=== PATIENT | female | born 1960 | race Caucasian/White ===

== ENCOUNTER 2024-07-09 19:38 | Emergency (ER) | payer OTHER, MEDICARE, SELFPAY ==
--- NOTE | ~2024-07-09 | XR_ITS ---
CLINICAL HISTORY: pain 3 view left shoulder Comparison: None Findings: No displaced fractures or dislocations. Mild degenerative changes of the left glenohumeral joint and left AC joint. Low bone mineralization suggested. Necklace opacities noted. Mild atelectasis in the fiqpv-fe-qliu. IMPRESSION: 1. No acute fracture or dislocation. 2. Mild osteoarthritis. This document has been electronically signed by: Tacho Klein MD on 07/09/2024 20:42:54
--- NOTE | ~2024-07-09 | US_ITS ---
EXAMINATION: US TRIPLEX UPPER EXTREMITY, LEFT CLINICAL INFORMATION: LEFT arm edema and swelling, pain COMPARISON: None available. TECHNIQUE: Color-flow triplex imaging with spectral analysis and compression Doppler was performed on the left upper extremity. FINDINGS: The left internal jugular, subclavian, and axillary veins are patent and free of thrombus. The imaged segment of the left brachiocephalic vein is patent. Spectral doppler waveforms are normal. The brachial, basilic, cephalic, radial, and ulnar veins are patent and compressible. US/US venous duplex UE LT IMPRESSION: No evidence of deep venous thrombosis involving the left upper extremity. Electronically signed by: Anel Lewis MD 07/12/2024 05:24 AM EST
[2024-07-09 19:52] VITALS: PULSE 64; RESP 16; TEMP 36.2; O2SAT 98; BMI 20.4
--- NOTE | 2024-07-09 19:56 | ED.EXTPRO ---
HPI - Extremity Problem General Chief complaint: Extremity Injury, Upper Stated complaint: ? blood clot in arm sent by [facility] care Related Data Allergies Allergy/AdvReac Type Severity Reaction Status Date / Time prochlorperazine AdvReac Unknown SKIN Unverified 07/09/24 19:59 [From COMPAZINE] [facility] Social History Social History Advance Directives: No Advance Directives Information Provided: No Do you have a plan to hurt others: No Plan Physical Exam Vital Signs: Vital Signs: Last Vital Signs Temp 97.2 F 07/09/24 19:52 Pulse 64 07/09/24 19:52 Resp 16 07/09/24 19:52 Pulse Ox 98 07/09/24 19:52 O2 Del Method Room Air 07/09/24 19:52 BMI result Body Mass Index 20.4 Course Course Course Narrative: This is a rapid medical exam performed by Dayana Mccain PA-C. Patient is a 63-year-old female who was sent here from urgent Care due to concern for DVT of the left upper extremity. The patient has been having ongoing left upper extremity pain for months; she states she sustained a fracture a few years ago, and has had worsening pain since. Patient has limited range of motion can not perform lateral arm raise she can flex and extend from the elbow. Her pulses are intact, she is perfusing, there was no objective swelling. We will be ordering x-rays and an ultrasound of the left upper extremity. The patient is stable and can return to the waiting room pending her full medical assessment. I am ordering screening labs in the event that she actually requires anticoagulation. Medical Decision Making Lab Data 07/09/24 20:05 07/09/24 20:05 Labs: Lab Results 07/09/24 Range/Units 20:05 WBC 4.3 L (4.8-10.8) X10*3/uL RBC 4.33 (4.20-5.50) X10*6/uL Hgb 13.9 (12.0-16.0) g/dl Hct 39.7 (37.0-47.0) % MCV 91.7 (80.0-98.0) fL MCH 32.1 (27.0-33.0) pg MCHC 35.0 (31.0-35.0) g/dl RDW 12.6 (11.0-16.0) % Plt Count 190 (160-400) X10*3/uL MPV 10.3 (9.4-12.3) fL Immature Gran % (Auto) 0.2 (0.0-0.4) % Neut % (Auto) 42.5 L (45-73) % Lymph % (Auto) 39.4 (20-40) % [place] % (Auto) 12.0 H (2-11) % Eos % (Auto) 5.2 H (0-4) % Baso % (Auto) 0.7 (0-2) % Lymph # (Auto) 1.7 (1.2-4.9) X10*3/uL [place] # (Auto) 0.5 (0.1-1.2) X10*3/uL Eos # (Auto) 0.2 (0.0-0.4) X10*3/uL Baso # (Auto) 0.0 (0.0-0.2) X10*3/uL Abs Immat Gran (auto) 0.01 (0.00-0.03) X10*3/uL Absolute Neuts (auto) 1.8 L (2.0-8.3) x10*3/uL Absolute Nucleated RBC 0.000 (0.0-0.012) X10*3/uL Nucleated RBC % (auto) 0.0 (0.0-0.2) /100WBC PT 13.3 H (10.9-12.4) SEC INR 1.1 (0.9-1.1) Sodium 140 (135-145) mmol/L Potassium 3.2 L (3.3-5.1) mmol/L Chloride 103 (96-108) mmol/L Carbon Dioxide 28 (22-29) mmol/L Anion Gap 12 (12-20) BUN 16 (9-16) mg/dL Creatinine 0.61 (0.5-1.4) mg/dL Estim Creat Clear Calc 75.7 Estimated GFR > 60 Random Glucose 87 (60-115) mg/dL Calcium 9.1 (8.4-10.2) mg/dL Magnesium 2.3 (1.6-2.6) mg/dL Total Bilirubin 0.5 (0.0-1.0) mg/dL AST 22 (5-31) U/L ALT 21 (0-31) U/L Alkaline Phosphatase 91 (39-117) U/L Total Protein 7.0 (6.5-8.0) g/dL Albumin 4.5 (3.5-5.0) g/dL Discharge Plan Discharge Clinical Impression: Arm pain, left Patient Disposition: Left W/O Completing Treatment Discharge Date/Time: 07/09/24 22:36
[2024-07-09 20:09] LABS: MANUAL DIFF FLAG NO
[2024-07-09 20:17] LABS: Basophils Percent Auto 0.7 % (0-2); Eosinophils Absolute Auto 0.2 X10*3/uL (0.0-0.4); Eosinophils Percent Auto 5.2 % (0-4); Hematocrit 39.7 % (37.0-47.0); Hemoglobin 13.9 g/dl (12.0-16.0); Imm Gran Abs Auto 0.01 X10*3/uL (0.00-0.03); Imm Gran Pct Auto 0.2 % (0.0-0.4); Lymphocytes Absolute Auto 1.7 X10*3/uL (1.2-4.9); Lymphocytes Percent Auto 39.4 % (20-40); Mean Corpuscular Hemoglobin 32.1 pg (27.0-33.0); Mean Corpuscular Volume 91.7 fL (80.0-98.0); Mean Platelet Volume 10.3 fL (9.4-12.3); Monocytes Absolute Auto 0.5 X10*3/uL (0.1-1.2); Neutrophils Absolute Auto 1.8 x10*3/uL (2.0-8.3); Neutrophils Percent Auto 42.5 % (45-73); Platelet Count 190 X10*3/uL (160-400); Red Blood Count 4.33 X10*6/uL (4.20-5.50); Red Cell Distribution Width 12.6 % (11.0-16.0); White Blood Count 4.3 X10*3/uL (4.8-10.8)
[2024-07-09 20:22] LABS: INTERNATIONAL NORM RATIO 1.1 (0.9-1.1); Prothrombin Time 13.3 SEC (10.9-12.4)
[2024-07-09 20:30] LABS: Alanine Aminotransferase 21 U/L (0-31); Albumin Level 4.5 g/dL (3.5-5.0); Alkaline Phosphatase 91 U/L (39-117); Anion Gap 12 (12-20); Aspartate Amino Transferase 22 U/L (5-31); Bilirubin Total 0.5 mg/dL (0.0-1.0); Blood Urea Nitrogen 16 mg/dL (9-16); Calcium 9.1 mg/dL (8.4-10.2); Carbon Dioxide 28 mmol/L (22-29); Chloride 103 mmol/L (96-108); Creatinine Clr Calc Pharmacy 75.7; Estimated Glomerular Filt Rate > 60; Glucose Random 87 mg/dL (60-115); Magnesium 2.3 mg/dL (1.6-2.6); Potassium 3.2 mmol/L (3.3-5.1); Sodium 140 mmol/L (135-145)
--- OUTSIDE RECORDS SUMMARY | 2024-07-09 20:51 | XMS_ITS | Referral Summary ---
Author Organization [facility] Address [address] [place] [address] Care Team Providers Care Civil Preparedness Officer Name Role Phone Royer Ospina Primary Care Provider Allergies Active Allergy Reactions Criticality Noted Date Comments Prochlorperazine Unknown 06/10/2023 Medications citalopram (CeleXA) 20 mg tablet Take 20 mg by mouth nightly. Active pregabalin (LYRICA) 25 mg capsule Take 25 mg by mouth 2 times a day. Unsure of dose Active diazePAM (VALIUM) 5 mg tablet Take 5 mg by mouth nightly as needed. Active cloNIDine (CATAPRES) 0.1 mg tablet Take 0.1 mg by mouth nightly as needed for high blood pressure. Active ibuprofen (MOTRIN) 800 mg tablet Take 1 tablet (800 mg total) by mouth 3 times a day. 21 tablet 0 Active Additional Information Patient not taking.Reported on 06/10/2023 benzonatate (TESSALON) 100 mg capsule 4 Active oseltamivir (TAMIFLU) 75 mg capsule 4 Active buPROPion XL (WELLBUTRIN XL) 300 mg tablet Take 300 mg by mouth. 3 Active predniSONE (DELTASONE) 20 mg tablet 4 Active SUMAtriptan (IMITREX) 100 mg tablet 1 TABLET BY MOUTH DAILY,INSTR:FOR MIGRAINE -MAY REPEAT DOSE AFTER 2 HOURS UP TO A MAXIMUM OF 2/DAY. Active traMADoL (ULTRAM) 50 mg tablet SMARTSI Tablet(s) By Mouth Every 8 Hours PRN Active albuterol (PROAIR HFA,VENTOLIN HFA) 90 mcg inhaler Inhale 2 puffs by mouth 4 (four) times daily. 0 Active EPINEPHrine (EPIPEN) 0.3 mg/0.3 mL injection syringe Inject into the shoulder, thigh, or buttocks muscle as directed. 0 Active Social History Tobacco Use Types Packs/Day Years Used Date Smoking Tobacco: Never Smokeless Tobacco: Never Alcohol Use Standard Drinks/Week Comments Not Currently 0 (1 standard drink = 0.6 oz pur e alcohol) Comments Unknown Sex and Gender Information Value Date Recorded Sex Assigned at Not on file Legal Sex Female 3:30 PM EDT Gender Identity Not on file Sexual Orientation Not on file Last Filed Vital Signs Vital Sign Reading Time Taken Comments Blood Pressure 141/84 06/10/2023 1:58 PM EST Pulse 95 06/10/2023 1:58 PM EST Temperature 36.5 ??C (97.7 ??F) 06/10/2023 1:58 PM ES T Respiratory Rate 20 06/10/2023 1:58 PM EST Oxygen Saturation 96% 06/10/2023 1:58 PM EST Inhaled Oxygen Concentration - - Weight - - Height - - Body Mass Index - - Plan of Treatment Not on file Insurance [employer] Care Teams Civil Preparedness Officer Relationship Specialty Start Date End Date Royer Ospina [address] [place] [address] PCP - General Internal Medicine 04/28/20
--- OUTSIDE RECORDS SUMMARY | 2024-07-09 20:51 | XMS_ITS | Data Portability ---
Author Organization [place] - [facility] - IP Address [address] [place] [address] Care Team Providers Care Puller Machine Name Role Phone ЕЛЕНА QUEEN Primary Care Provider Assessment No assessment recorded. Plan of Treatment Reminders Order Date Submit Date Provider Last Modified By Organization Details Last Modified Time Details Appointments COLONOSCO PY MODERATE SEDATION 2030 09:00A M Chemmanur _procedur es Not available Not available Not available Lab pancreati c elastase, stool 2021 022 [facility], [id number] [facility], [place], [address], 01/02/2022 11:30:47 Referral None recorded. Procedures None recorded. Surgeries None recorded. Imaging None recorded. Medication Orders Linzess 72 mcg capsule 2020 021 [facility], [address], [place], [place], [id number], 03/21/2021 09:11:29 omeprazol e 40 mg capsule,d elayed release 2020 021 [id number], [address] [place], [address], 03/22/2021 04:25:[address]-ER 9 mg tablet,de layed and extended release 2021 022 [id number], [address] [place], [address], 01/02/2022 11:23:34 Pentasa 500 mg capsule,c ontrolled release 2021 022 [id number], [address] [place] [address], [address], 01/02/2022 11:23:34 Patient TargetsNo targets recorded. Patient Instructions Encounter Date Encounter Id Patient Instructions Last Modified By Organization Details Last Modified Time 07/09/2021 [id number] nausea and vomiting: care instructions Not available 07/10/2021 09:32:27 01/01/2022 [id number] constipation: care instructions Not available 01/02/2022 11:23:31 crohn's disease: care instructions Not available 01/02/2022 11:23:31 Reason for Referral None Reported. Results Created Date Observation Date Name Description Value Unit Range Abnormal Flag Note LastModifiedBy Organization Detail LastModifiedTime 05/21/20 21 05/22/2021 UREA NITRO GEN (BUN) urea nitrogen (BUN) 14 mg/dL 7-25 normal Not Available [facility] [place] [facility] [address], [address], 05/22/2021 02:54:36 05/21/20 21 05/22/2021 UREA NITRO GEN (BUN) copy(ies) sent to: VIJAY Nascimento [address] [place] [phone] Not Available [facility] [place] [facility] [address], [place], [address], 05/22/2021 02:54:36 05/21/20 21 05/22/2021 CREAT ININE creatinine 0.79 mg/dL 0.50-0 .99 normal For patie nts >49 years of age, the refer ence limit for Creat inine is appro ximat mariel 13% highe r for peopl e ident ified as Afric an-Am zully n. Not Available [facility] [address], [place], [address], 05/22/2021 02:54:36 05/21/20 21 05/22/2021 CREAT ININE eGFR non-afr. portuguese 80 mL/mi n/1.7 3m2 > or = 60 normal Not Available [facility] [place] [facility] [address], [place], [address], 05/22/2021 02:54:36 05/21/20 21 05/22/2021 CREAT ININE eGFR 93 mL/mi n/1.7 3m2 > or = 60 normal Not Available [facility] [place] [facility] [address], [place], [address], 05/22/2021 02:54:36 05/21/20 21 05/22/2021 CREAT ININE copy(ies) sent to: VIJAY Nascimento [address] [place] [phone] Not Available [facility] [place] [facility] [address], [place], [address], 05/22/2021 02:54:36 09/19/19 22 09/20/2021 DAVID C DISEA SE COMP PANEL W/GLI PIPPA AB (IGG) interpretati on No serol ogica l evide nce for david c disea se is prese nt. tTg may hilary lize in indiv idual s with david c disea se who maint ain a glute n free diet. If high suspi cion of david c disea se, consi fabiola HLA DQ2 and DQ8 testi ng to rule out david c disea se. Not Available [facility] [place] [facility] [address], [place], [address], 09/20/2021 14:58:56 09/19/19 22 09/20/2021 DAVID C DISEA SE COMP PANEL W/GLI PIPPA AB (IGG) tissue transglutami nase Ab, IgA <1.0 U/mL normal Value Inter preta tion ----- ----- ----- ---- <15.0 Antib fernando not detec summer > or = 15.0 Antib fernando detec summer Not Available [facility] [place] [facility] [address], [address], 09/20/2021 14:58:56 09/19/19 22 09/20/2021 DAVID C DISEA SE COMP PANEL W/GLI PIPPA AB (IGG) immunoglobul in A 162 mg/dL 70-320 normal Not Available [facility] [place] [facility] [address], [place], [address], 09/20/2021 14:58:56 09/19/19 22 09/20/2021 DAVID C DISEA SE COMP PANEL W/GLI PIPPA AB (IGG) copy(ies) sent to: VIJAY Nascimento [address] [place] [phone] Not Available [facility] [place] [facility] [address], [place], [address], 09/20/2021 14:58:56 09/19/19 22 09/21/2021 INFLA MMATO RY BOWEL DISEA SE DIFFE RENTI ATION PANEL anca screen Negati ve negati ve ANCA Scree n inclu roxanne evalu ation for p-ANC A, c-ANC A and atypi hermila p-ANC A. A posit candice ANCA scree n refle xes to karo and gabe rn(s) , e.g., cytop lasmi c gabe rn (c-AN CA), perin uclea r gabe rn (p-AN CA), or atypi hermila p-ANC A gabe rn. c-ANC A and p-ANC A are obser alden in vascu litis , where as atypi hermila p-ANC A is obser alden in IBD (Infl ammat ory Bowel Disea se). Atypi hermila p-ANC A is detec summer in about 55% to 80% of patie nts with ulcer ative colit is but only 5% to 25% of patie nts with Crohn 's disea se. Not Available [facility] [place] [facility] [address], [place], [address], 09/21/2021 00:06:28 09/19/19 22 09/21/2021 INFLA MMATO RY BOWEL DISEA SE DIFFE RENTI ATION PANEL myeloperoxid ase antibody <1.0 ai <1.0 Value Inter preta tion <1.0 AI: No Antib fernando Detec summer >or=1 .0 AI: Antib fernando Detec summer Autoa ntibo dies to myelo perox idase (MPO) are commo nly assoc iated with the follo wing small -vess el vascu litid es: micro scopi c polya ngiit is, polya rteri tis nodos a, [place] -Stra uss syndr ome, necro tizin g and cresc entic glome rulon ephri tis and occas ional ly granu lomat osis with polya ngiit is (GPA, Wegen er's) . The perin yonatan bernal rn, (p-AN CA) is based large ly on autoa ntibo dy to myelo perox idase which serve s as the prima ry antig en. These autoa ntibo dies are prese nt in activ e disea se. Not Available [facility] [place] [facility] [address], [place], [address], 09/21/2021 00:06:28 09/19/19 22 09/21/2021 INFLA MMATO RY BOWEL DISEA SE DIFFE RENTI ATION PANEL proteinase-3 antibody <1.0 ai <1.0 Value Inter preta tion <1.0 AI: No Antib fernando Detec summer >or=1 .0 AI: Antib fernando Detec summer Autoa ntibo dies to prote inase -3 (PA-3 ) are accep summer as kalyani cteri stic for granu lomat osis with polya ngiit is (GPA, Wegen er's) , and are detec table in 95% of the histo logic ally prove n cases . The cytop armando bernal rn, (c-AN CA), is based large ly on autoa ntibo dy to PA-3 which serve s as the prima ry antig en. These autoa ntibo dies are prese nt in activ e disea se. Not Available [facility] [place] [facility] [address], [place], [address], 09/21/2021 00:06:28 09/19/19 22 09/21/2021 INFLA MMATO RY BOWEL DISEA SE DIFFE RENTI ATION PANEL saccharomyce s cerevisiae Ab (asca) (IgG) 29.0 U <=20.0 high Refer ence range (s): Negat candice: <=20. 0 Equiv ocal: 20.1 - 29.9 Posit candice: >=30. 0 Antib odies to Sacch aromy sj cerev isiae are found in appro ximat mariel 75% of patie nts with Crohn 's disea se, 15% of patie nts with ulcer ative colit is, and 5% of the healt hy popul ation . High antib fernando titer s incre ase the likel ihood of disea se, espec ially Crohn 's disea se, and are assoc iated with more aggre ssive disea se. As the infla mmati on in Crohn 's disea se is focus ed at the gut mucos a, most patie nts have IgA antib odies to S cerev isiae and half of these also have IgG antib odies . A minor ity of patie nts have only IgG antib odies to S cerev isiae . Not Available [facility] [place] [facility] [address], [place], [address], 09/21/2021 00:06:28 09/19/19 22 09/21/2021 INFLA MMATO RY BOWEL DISEA SE DIFFE RENTI ATION PANEL saccharomyce s cerevisiae Ab (asca) (IgA) 9.4 U <=20.0 Refer ence range (s): Negat candice : <=20. 0 Equiv ocal: 20.1 - 24.9 Posit candice: >=25. 0 Antib odies to Sacch aromy sj cerev isiae are found in appro ximat mariel 75% of patie nts with Crohn 's disea se, 15% of patie nts with ulcer ative colit is, and 5% of the healt hy popul ation . High antib fernando titer s incre ase the likel ihood of disea se, espec ially Crohn 's disea se, and are assoc iated with more aggre ssive disea se. As the infla mmati on in Crohn 's disea se is focus ed at the gut mucos a, most patie nts have IgA antib odies to S cerev isiae and half of these also have IgG antib odies . A minor ity of patie nts have only IgG antib odies to S cerev isiae . Not Available [facility] [address], [address], 09/21/2021 00:06:28 09/19/19 22 09/21/2021 INFLA MMATO RY BOWEL DISEA SE DIFFE RENTI ATION PANEL copy(ies) sent to: [address] [phone] Not Available [facility] [address], [address], 09/21/2021 00:06:28 09/19/19 22 09/19/2021 C-SONI CTIVE PROTE IN C-reactive protein 2.1 mg/L <8.0 normal Not Available [facility] [address], [address], 09/19/2021 14:57:06 09/19/19 22 09/19/2021 C-SONI CTIVE PROTE IN copy(ies) sent to: [address] [phone] Not Available [facility] [place] [facility] [address], [place], [address], 09/19/2021 14:57:06 10/03/19 22 10/10/2021 CALPR OTECT IN, STOOL calprotectin , stool 100 mcg/g Refer ence Range : <50 Hilary l 50-12 0 Borde rline >120 [place] summer Calpr otect in in Crohn 's disea se and ulcer ative colit is can be five to sever al thous and times above the refer ence popul ation (50 mcg/g or less) . Level s are usual ly 50 mcg/g or less in healt hy patie nts and with irrit able bowel syndr ome. Repea t testi ng in 4-6 weeks is sugge sted for borde rline value s. Not Available [facility] [place] [facility] [address], [place], [address], 10/10/2021 00:43:47 10/03/19 22 10/10/2021 CALPR OTECT IN, STOOL copy(ies) sent to: [facility] HONG Nascimento [facility] [address] [facility] [address] [place] [phone] Not Available [facility] [place] [facility] [address], [place], [address], 10/10/2021 00:43:47 10/03/19 22 10/06/2021 LACTO CARTER N, QN, STOOL lactoferrin, qn, stool <30.0 mcg/m L Refer ence Range : LESS THAN 30.0 Lacto carter n Stool , Quant itati ve, shoul d be inter prete d in the margot xt of clini hermila prese ntati on. Hilary l indiv idual s may have low posit candice value s due to prior infec tion or envir onmen vinay or trave l expos ures. The follo wing patie nt sampl es shoul d be exclu ded from use in the test: patie nts with a histo ry of HIV and/o r have hepat itis B or C, patie nts with a histo ry of infec tious diarr hea (with in 6 month s), and patie nts sarah gilman had a colos josee and or ileos josee withi n 1 month . Patie nts with activ e Crohn 's disea se tend to have lacto carter n stool level s over 300 ug/mL . Those with activ e ulcer ative colit is tend to have value s over 1000 ug/mL . Value s are from the packa ge inser t. Not Available [facility] [place] [facility] [address], [address], 10/06/2021 21:02:59 10/03/19 22 10/06/2021 LACTO CARTER N, QN, STOOL copy(ies) sent to: [facility] R [facility] [address] [facility] [address] [place] [phone] Not Available [facility] [place] [facility] [address], [address], 10/06/2021 21:02:59 10/03/19 22 10/05/2021 LACTO CARTER N, QL, STOOL lactoferrin, ql, stool SEE NOTE LACTO CARTER N, QL, STOOL Micro Numbe r: [id number] Test Statu s: Final Speci men Sourc e: Stool Speci men Quali ty: Adequ ate Lacto carter n: Negat candice Lacto carter n in the stool is a marke r for fecal leuko cytes and is a non-s pecif ic indic ator of intes tinal infla mmati on that may be detec summer in patie nts with acute infec tious colit is or infla mmato ry bowel disea se. The diagn osis of an acute infec tious proce ss or activ e IBD canno t be estab lishe d solel y on the basis of a posit candice resul t. This test may not be appro priat e for immun ocomp romis ed perso ns. In addit ion, this test is not FDA clear ed for patie nts with a histo ry of HIV and/o r Hepat itis B and C, patie nts with a histo ry of infec tious diarr hea (with in 6 month s), and patie nts sarah g had a colos josee and/o r ileos josee withi n 1 month . Not Available [facility] [place] [facility] [address], [place], [address], 10/05/2021 18:06:22 10/03/19 22 10/05/2021 LACTO CARTER N, QL, STOOL copy(ies) sent to: [facility] Nascimento [facility] [address] [facility] [address] [place] [phone] Not Available [facility] [place] [facility] [address], [place], [address], 10/05/2021 18:06:22 05/31/20 21 05/24/2021 MRI, abdom en, w/wo contr ast No observ ation record ed. [email or web address] [facility] [address] [facility], [place], [address], 05/31/2021 15:23:45 05/31/20 21 05/24/2021 abdom en w/&w/ [place] [id number] ____ __ ____ Pedro walker MD: Rosa M Smalls MD () Exam: ABDOME N WO/W CM Signs/ Sympto ms: ABDOMI NAL PAIN, INTEST IONAL OBSTRU CTION, WEIGHT LOSS MRI ENTERO GRAPHY HISTOR Y: Abdomi nal pain. Weight loss. COMPAR RANDOLPH: None. TECHNI QUE: Multip lanar MRI of the abdome n and pelvis was perfor med per the standa rd MR entero graphy protoc ol. Oral contra st was admini stered prior to this exam. Exam was perfor med prior to and after the admini strati on of [address] IV contra st. MEDICA TIONS: 1 mg glucag on IM was admini stered for this exam. FINDIN GS: Limite d evalua tion of the liver, kidney s, spleen , pancre as, and adrena l glands . There is a left adrena l mass measur ing 2.2 x 2.2 cm. There are innume rable predom inantl y subcen timete r T2 hyperi ntense lesion s scatte red throug hout the liver. The larges t measur es 10 mm in the right lobe of the liver. These lesion s do not appear to enhanc e. The liver is enlarg ed measur ing 19 cm. STOMAC H/GI TRACT: No eviden ce of bowel obstru ction. There is hypere nhance ment of the termin al ileum approx imatel y 3 cm proxim al to the ileoce hermila valve. This portio n of bowel remain s underd istend ed/col lapsed on all sequen js. The involv ed segmen t is approx imatel y 8 cm in length . There is anothe r loop of ileum in the centra l pelvis which is thicke kuldeep and hypere nhanci ng (55-41 ). This loop spans approx imatel y 11 cm. This loop is also underd istend ed/col lapse on the sequen sj. This exam was not perfor med for the evalua tion of the large bowel. There is coloni c divert iculos is. On the subtra ction images , there is appare nt hypere nhance ment and wall thicke radha in 2 areas in the descen ding colon in the left lower quadra nt with possib le correl ate on the axial series (101-3 5 and 31). The perian al region is not entire ly includ ed within the field- of-vie w of this study howeve r there is no gross abnorm ality. PELVIS : There is a left adnexa l cyst measur ing 11 x 10 mm (44-16 ). There is no apprec iable mural nodula rity. The uterus appear s surgic ally absent . PERITO NEUM AND RETROP ERITON EUM: There is no ascite s. There is no draina ble fluid collec tion. LYMPH NODES: No enlarg ed lymph nodes. There are subcen timete r short axis bilate ral reinforcing bar setter al iliac lymph nodes. VESSEL S: No abdomi nal aortic aneury sm. BONES AND SOFT TISSUE S: Limite d evalua tion of the osseou s struct ures demons trates no suspic ious abnorm ality. Degene rative change s of the spine. IMPRES JOSY: 1. Mucosa l hypere nhance ment and wall thicke radha of the termin al ileum. There is a anothe r separa te loop of ileum which is thicke kuldeep and hypere nhanci ng in the centra l pelvis . This likely reflec ts active bowel inflam mation with differ ential includ ing inflam matory bowel diseas e such as Crohn' s diseas e. 2. Two possib le areas of wall thicke radha and hypere nhance ment in the distal descen ding colon in the left lower quadra nt. Colono scopy is recomm ended for furthe r evalua tion if not recent ly perfor med to evalua te for underl zaida lesion . 3. Hepato megaly . Innume rable mostly subcen timete r T2 hyperi ntense lesion s throug hout the liver, likely reflec ting elizabeth us small cysts. 4. Left adrena l mass measur ing 2.2 cm. This is incomp letely charac terize d on this exam. The patien t report ed having an outsid e MRI. Compar randolph with prior if availa ble. 5. Left adnexa l cyst measur ing 11 mm. A follow -up pelvic ultras ound is recomm ended to ensure stabil ity. Transc ribed: [id number] Report [id number] Copies to: Interp reting Physic abeba: Ranjit Norris MD Approv ed Electr onical ly by/ Date: Ranjit Norris MD [address] LR: Electr onical ly approv ed by: Ignacia hammonds Date: 2020 7:47 AM Copies To: [facility] ; [email or web address] [facility] [address], [place], [address], 07/25/2021 19:06:40 05/31/20 21 05/24/2021 pelvi s w/&w/ [place] [id number] ____ __ ____ Pedro walker MD: Rosa M Smalls MD (PO) Exam: PELVIS WO/W CM Signs/ Sympto ms: ABDOMI NAL PAIN, INTEST INAL OBSTRU CTION, WEIGHT LOSS MRI ENTERO GRAPHY HISTOR Y: Abdomi nal pain. Weight loss. COMPAR RANDOLPH: None. TECHNI QUE: Multip lanar MRI of the abdome n and pelvis was perfor med per the standa rd MR entero graphy protoc ol. Oral contra st was admini stered prior to this exam. Exam was perfor med prior to and after the admini strati on of [address] IV contra st. MEDICA TIONS: 1 mg glucag on IM was admini stered for this exam. FINDIN GS: Limite d evalua tion of the liver, kidney s, spleen , pancre as, and adrena l glands . There is a left adrena l mass measur ing 2.2 x 2.2 cm. There are innume rable predom inantl y subcen timete r T2 hyperi ntense lesion s scatte red throug hout the liver. The larges t measur es 10 mm in the right lobe of the liver. These lesion s do not appear to enhanc e. The liver is enlarg ed measur ing 19 cm. STOMAC H/GI TRACT: No eviden ce of bowel obstru ction. There is hypere nhance ment of the termin al ileum approx imatel y 3 cm proxim al to the ileoce hermila valve. This portio n of bowel remain s underd istend ed/col lapsed on all sequen sj. The involv ed segmen t is approx imatel y 8 cm in length . There is anothe r loop of ileum in the centra l pelvis which is thicke kuldeep and hypere nhanci ng (55-41 ). This loop spans approx imatel y 11 cm. This loop is also underd istend ed/col lapse on the sequen sj. This exam was not perfor med for the evalua tion of the large bowel. There is coloni c divert iculos is. On the subtra ction images , there is appare nt hypere nhance ment and wall thicke radha in 2 areas in the descen ding colon in the left lower quadra nt with possib le correl ate on the axial series (101-3 5 and 31). The perian al region is not entire ly includ ed within the field- of-vie w of this study howeve r there is no gross abnorm ality. PELVIS : There is a left adnexa l cyst measur ing 11 x 10 mm (44-16 ). There is no apprec iable mural nodula rity. The uterus appear s surgic ally absent . PERITO NEUM AND RETROP ERITON EUM: There is no ascite s. There is no draina ble fluid collec tion. LYMPH NODES: No enlarg ed lymph nodes. There are subcen timete r short axis bilate ral reinforcing bar setter al iliac lymph nodes. VESSEL S: No abdomi nal aortic aneury sm. BONES AND SOFT TISSUE S: Limite d evalua tion of the osseou s struct ures demons trates no suspic ious abnorm ality. Degene rative change s of the spine. IMPRES JOSY: 1. Mucosa l hypere nhance ment and wall thicke radha of the termin al ileum. There is a anothe r separa te loop of ileum which is thicke kuldeep and hypere nhanci ng in the centra l pelvis . This likely reflec ts active bowel inflam mation with differ ential includ ing inflam matory bowel diseas e such as Crohn' s diseas e. 2. Two possib le areas of wall thicke radha and hypere nhance ment in the distal descen ding colon in the left lower quadra nt. Colono scopy is recomm ended for furthe r evalua tion if not recent ly perfor med to evalua te for underl zaida lesion . 3. Hepato megaly . Innume rable mostly subcen timete r T2 hyperi ntense lesion s throug hout the liver, likely reflec ting elizabeth us small cysts. 4. Left adrena l mass measur ing 2.2 cm. This is incomp letely charac terize d on this exam. The patien t report ed having an outsid e MRI. Compar randolph with prior if availa ble. 5. Left adnexa l cyst measur ing 11 mm. A follow -up pelvic ultras ound is recomm ended to ensure stabil ity. Transc ribed: [id number] Report [id number] Copies to: Interp reting Physic abeba: Ranjit Norris MD Approv ed Electr onical ly by/ Date: Ranjit Norris MD [address]: Electr onical ly approv ed by: Ignacia hammonds Date: 2020 7:48 AM Copies To: Health care Change ; [email or web address] [facility] [address] [facility], [place], [address], 07/25/2021 19:06:40 05/31/20 21 05/24/2021 MRI, pelvi s, w/wo contr ast No observ ation record ed. [email or web address] [address] [facility], [place], [address], 05/31/2021 15:24:21 Result Notes None recorded. Problems No Known Problems Procedures Surgical History None recorded. Imaging Results Imaging Date Name Status LastModified by Organiz ation Details LastModified Time 05/24/2021 MRI, abdomen, w/wo contrast completed [email or web address] [address] [facility], [place], [address], 05/31/2021 15:23:45 05/24/2021 abdomen w/&w/o contrast [id number] completed [email or web address] [facility] [address] [facility], [place], [address], 07/25/2021 19:06:40 05/24/2021 pelvis w/&w/o contrast [id number] completed [email or web address] [facility] [address] [facility], [place], [address], 07/25/2021 19:06:40 05/24/2021 MRI, pelvis, w/wo contrast completed [email or web address] [facility] [address] [facility], [place], [address], 05/31/2021 15:24:21 Procedure Notes None recorded. Medical Equipment None Reported. Allergies No known drug allergies Medications Name Sig Start Date Stop Date Status Note LastModified by Organization Details LastModified Time quetiapine 25 mg tablet TAKE 2 TABLETS BY MOUTH AT BEDTIME active Not Available Not Available No t Available celecoxib 200 mg capsule 1 CAPSULE BY MOUTH 2 TIMES A DAY,X21 DAYS active Not Available Not Available No t Available clonidine HCl 0.1 mg tablet TAKE 1-2 TABLETS AT BEDTIME FOR INSOMNIA AND 1/2 TABLET FOR ANXIETY DURING THE DAY active Not Available Not Available No t Available doxycycline hyclate 100 mg capsule TAKE 1 CAPSULE BY MOUTH TWICE A DAY WITH FOOD & FULL GLASS OF WATER-DO NOT LAY DOWN FOR 1 HOUR AFTER active Not Available Not Available N ot Available citalopram 40 mg tablet TAKE 1 TABLET BY MOUTH EVERY DAY active Not Available Not Available No t Available ibuprofen 800 mg tablet TAKE 1 TABLET BY MOUTH THREE TIMES A DAY NEEDED active Not Available Not Available No t Available citalopram 10 mg tablet TAKE 1 TABLET BY MOUTH DAILY WITH 40MG TABLET (TOTAL 50MG) active Not Available Not Available No t Available sumatriptan 100 mg tablet TAKE 1 TABLET BY MOUTH DAILY FOR MIGRAINE -MAY REPEAT DOSE AFTER 2 HOURS UP TO A MAXIMUM OF 2/DAY active Not Available Not Available No t Available tretinoin 0.025 % topical cream APPLY A PEA SIZE AMOUNT TOPICALLY TO AFFECTED AREAS ON FACE EVERY EVENING AT BEDTIME active Not Available Not Available No t Available fluconazole 200 mg tablet TAKE ONE TABLET, THEN TAKE THE 1 TABLET 1 WEEK LATER IF NEEDED active Not Available Not Available No t Available cephalexin 250 mg tablet TAKE 1 TABLET BY MOUTH EVERY 6 HOURS active Not Available Not Available No t Available sumatriptan 50 mg tablet TAKE 1 TABLET AT ONSET OF HEADACHE. MAY REPEAT EVERY 2HRS TO MAX OF 200MG/24HR active Not Available Not Available N ot Available topiramate 25 mg tablet TAKE 2 TABLETS BY MOUTH EVERY DAY active Not Available Not Available No t Available omeprazole 40 mg capsule,bhargav yed release Take 1 capsule every day by oral route for 30 days. 2020 active Not Available Not Available Not Avai lable tramadol 50 mg tablet TAKE 1 TABLET BY MOUTH EVERY 8 HOURS NEEDED FOR PAIN FOR 28 DAYS active Not Available Not Available No t Available benzonatate 100 mg capsule TAKE 1 CAPSULE BY MOUTH EVERY 8 HOURS NEEDED FOR COUGH & CONGESTION active Not Available Not Available N ot Available promethazine 25 mg tablet TAKE 1 TABLET BY MOUTH EVERYDAY AT BEDTIME active Not Available Not Available No t Available betamethason e dipropionate 0.05 % topical cream APPLY TOPICALLY TO AFFECTED AREAS ON LEGS TWICE A DAY X2-3 WKS. THEN NEEDED FOR FLARE-UPS active Not Available Not Available No t Available omeprazole 20 mg capsule,bhargav yed release active Not Available Not Available Not Available diclofenac sodium 75 mg tablet,delay ed release TAKE 1 TABLET BY MOUTH TWICE A DAY active Not Available Not Available No t Available mupirocin 2 % topical ointment APPLY TO AFFECTED AREAS ON THE LEGS TWICE DAILY X 2 WEEKS NEEDED FOR FLARES active Not Available Not Available N ot Available diazepam 10 mg tablet TAKE 1 TABLET BY MOUTH TWICE A DAY (EARLY REFILL APPROVED FOR VACATION) active Not Available Not Available No t Available ibuprofen 600 mg tablet TAKE 1 TABLET BY MOUTH THREE TIMES A DAY WITH FOOD NEEDED active Not Available Not Available No t Available fluocinonide 0.05 % topical solution APPLY A FEW DROPS TO AFFECTED AREAS ON SCALP 2 TIMES A DAY X 30 DAYS THEN NEEDED FOR FLARE UPS active Not Available Not Available No t Available topiramate 100 mg tablet TAKE 1 TABLET BY MOUTH EVERY DAY active Not Available Not Available No t Available fluticasone propionate 50 mcg/actuatio n nasal spray,suspen josy USE 1 SPRAY INTO EACH NOSTRIL TWICE A DAY active Not Available Not Available Not Available diazepam 5 mg tablet TAKE 1 TABLET BY MOUTH 3 TIMES A DAY active Not Available Not Available Not Available oxycodone 5 mg tablet TAKE 1 TABLET BY MOUTH EVERY 4 TO 6 HOURS NEEDED FOR PAIN active Not Available Not Available No t Available bupropion HCl XL 150 mg 24 hr tablet, extended release TAKE 1 TABLET BY MOUTH EVERY 24 HOURS FOR 90 DAYS active Not Available Not Available Not Available mesalamine ER 500 mg capsule,exte nded release TAKE 2 CAPSULES BY MOUTH 3 TIMES A DAY 2021 active Not Available Not Available Not Avai lable Nasal Decongestant (phenylephri ne) 10 mg tablet TAKE 1 TAB(S) ORALLY EVERY 4 HOURS NEEDED active Not Available Not Available No t Available pregabalin 300 mg capsule TAKE 1 CAPSULE BY MOUTH TWICE A DAY active Not Available Not Available No t Available Suprep Bowel Prep Kit 17.5 gram-3.13 gram-1.6 gram oral solution Take 354 mL by oral route. active Not Available Not Available No t Available Linzess 145 mcg capsule TAKE 1 CAPSULE BY MOUTH EVERY DAY active Not Available Not Available No t Available Uceris 9 mg tablet, extended release TAKE 1 TABLET BY MOUTH EVERY DAY FOR 30 DAYS 2021 active Not Available Not Available Not Avai lable Linzess 72 mcg capsule TAKE ONE CAPSULE BY MOUTH ONCE DAILY active Not Available Not Available No t Available Readi-Cat 2 2 % (w/v) oral suspension PLEASE SEE ATTACHED FOR DETAILED DIRECTIONS active Not Available Not Available N ot Available Vitals None Recorded Social History None recorded. Functional Status None recorded. Mental Status None recorded. Family History Nothing Reported. Medical History No medical history recorded. Gynecological HistoryNo gynecological history recorded. Obstetrics History GPAL:G 0 P 0 0 0 0 Past Encounters Encounter ID Performer Location Encounter Start Date Encounter Closed Date Diagnosis/Indication Diagnosis SNOMED-CT Code Diagnosis ICD10 Code Diagnosis Note [id number] Zoie rogers [facility] - Office [address] [place] [id number] 03/21/2021 09:05:07 03/21/2021 09:11:19 Heartburn 82723862 R12 Dysphagia 86288502 R13.1 0 Constipation 55864935 K5 9.00 [id number] Sammie Estrada [facility] - Office [address] [place] [id number] 8 07/10/2021 09:28:05 07/10/2021 09:32:40 Gastroesophageal reflux disease without esophagitis 618236219 K21.9 Epigastric pain 24034733 R10.13 Nausea and vomiting 1693 1999 R11.2 Small edinson l obstruction 280422858 K56.609 [id number] Sammie Estrada [facility] [address], [address] [place] [address] 01/02/2022 11:19:17 01/02/2022 11:23:59 Gastroesophageal reflux disease without esophagitis 506229413 K21.9 Constipation 15629922 K5 9.00 Crohn's disease 86339307 K50.90 Epigastric pain 50996074 R10.13 Abdominal bloating 08655 9008 R14.0 Health Concerns Section Related Observation LastModified by Organization Detai ls LastModified Time None Recorded Concern Status LastModified by Organization Details LastModified Time None Recorded Advance Directives Directive None Recorded Payers Encounter Date Sequence Insurance Name Policy Number Policy Segovia Covered Member ID Segovia Member ID Guarantor Name 03/19/2021 1 [employer] [id number] Lakshmi Dennison [id number] Lakshmi Dennison 07/09/2021 1 [employer] [id number] Lakshmi Dennison [id number] 5 Lakshmi Dennison 01/01/2022 1 [employer] [id number] Lakshmi Dennison [id number] 5 Lakshmi Dennison OBGyn Episode No OBEpisode recorded.
== END 2024-07-09 22:36 | disposition left against medical advice (07) ==
PROVIDERS: Physician Assistant Medical; Emergency Provider Emergency Medicine; PCP Internal Medicine
DX: M79.622 Pain in left upper arm (principal)
CPT/HCPCS: 36415; 73030; 80053; 83735; 85025; 85610; 93971; 99281; 99284

== ENCOUNTER → 2024-07-09 19:53 | Outpatient (BNV) | payer OTHER, MEDICARE, SELFPAY | PROVIDERS: PCP Internal Medicine; Visit Provider Radiology Neuroradiology | DX: M25.512 Pain in left shoulder (principal) | CPT/HCPCS: 73030 ==

== ENCOUNTER 2024-09-07 07:00 | Emergency (ER) | payer OTHER, MEDICARE, SELFPAY ==
--- NOTE | ~2024-09-07 | CT_ITS ---
EXAMINATION: CT CERVICAL SPINE WITHOUT CONTRAST CLINICAL INFORMATION: Neck pain with left arm pain. COMPARISON: None available. TECHNIQUE: Spiral CT imaging of the cervical spine performed in axial plane without contrast. Multiplanar reformatted images were constructed from the axial data set. This CT examination was performed using dose optimization techniques as appropriate, variously including the following: *Automated exposure control *Adjustment of mA and/or kV according to patient size (this includes techniques or standardized protocols for targeted exams where dose is matched to indication/reason for exam; i.e. extremities or head) *Use of iterative reconstruction technique FINDINGS: CORONAL ALIGNMENT: -Normal. SAGITTAL ALIGNMENT: -Minimal reversal of the normal lordosis centered at C5-6. -There is a 2 mm degenerative appearing anterolisthesis of C4 on C5 and C5 on C6. C1-C2 AND CRANIOCERVICAL JUNCTION: -Intact and aligned. Mild to moderate degenerative changes in the atlantoaxial joint. VERTEBRAL BODIES AND FACETS: -No fracture, traumatic subluxation, compression deformity, or suspicious bone lesion. Normal facet alignment. Mild to moderate degenerative facet changes present, most significant on the right at C3-4, and on the left at C4-5 and C5-6. DISCS: -Mild disc degeneration present C4-5, C5-6, and C6-7. -Discs otherwise preserved. CENTRAL CANAL: -No evidence of high-grade central canal narrowing or large disc herniation allowing for modality limitations. -No high-grade left neural foraminal stenosis noted. PREVERTEBRAL AND PARAVERTEBRAL SOFT TISSUES: -Normal. -Mild left greater than right carotid bulb calcification. -Normal-appearing thyroid. LUNG APICES: -Minimal biapical scarring. Otherwise clear. CT/CT cervical spine wo IV con IMPRESSION: 1. No CT evidence of acute cervical spine fracture or injury. 2. Mild degenerative spondylosis as discussed. No high-grade central canal stenosis, or high-grade left neural foraminal stenosis identified. 3. Should symptoms persist, MRI recommended. Electronically signed by: Paulino Pisano MD 09/07/2024 09:17 AM EDT
[2024-09-07 07:13] VITALS: BP 124/63; PULSE 63; RESP 18; TEMP 36.7; O2SAT 96; BMI 21.3
--- OUTSIDE RECORDS SUMMARY | 2024-09-07 08:01 | XMS_ITS | Clinical Summary ---
Author Organization [facility] Address [address] [place] [address] Care Team Providers Care Project Program Manager Name Role Phone Royer Ospina Primary Care Provider [phone] Allergies Active Allergy Reactions Criticality Noted Date [...] Mass Index - - Plan of Treatment Health Maintenance Due Date Last Done Comments Cologuard 1958 Colon Cancer Screening 1958 Colonoscopy 1958 FOBT / Fit Test 1958 Hepatitis C Screening 1958 Sigmoidoscopy 1958 Mammogram 1998 Osteoporosis Screening 2008 Pneumococcal Vaccine: 50+ Years (1 of 1 - PCV) 2008 Zoster Vaccines (1 of 2) 2008 COVID-19 Vaccine ( - season) 2024 04/15/2022, 06/11/2021, 10/17/2020, Additional history exists Alcohol/Substance Use Screening 06/02/2024 Depression Screening and Follow-Up 06/02/2024 Health Care Proxy Review 06/02/2024 Social Drivers of Health Annual Screening 06/02/2024 Influenza Vaccine (Season Ended) 2025 04/15/2022, 03/26/2021, 03/26/2021, Additional history exists DTaP,Tdap,and Td Vaccines (2 - Td or Tdap) 04/25/2025 04/25/2015 RSV Vaccine (60+ years old and patients) (1 - 1-dose 75+ series) 2033 Hepatitis B Vaccines Aged Out No long er eligible based on patient's age to complete this topic Insurance [employer] Care Teams Project Program Manager Relationship Specialty Start Date End Date Royer Ospina [address] [place] [phone] PCP - General Internal Medicine 04/28/20
--- OUTSIDE RECORDS SUMMARY | 2024-09-07 08:02 | XMS_ITS | Data Portability ---
Author Organization [place] - [facility] [place] - IP Address [address] [facility] [place] [address] Care Team Providers Care Patient Services Coordinator Name Role Phone ЕЛЕНА QUEEN Primary Care Provider Assessment No assessment recorded. Plan of Treatment Reminders Order Date Submit Date Provider Last Modified By Organization Details Last Modified Time Details Appointments COLONOSCO PY MODERATE SEDATION 2030 09:00A M Chemmanur _procedur es Not available Not available Not available Lab pancreati c elastase, stool 2021 022 [facility], 156[address] [facility]ly [facility], [place], [address], 01/02/2022 11:30:47 Referral None recorded. Procedures None recorded. Surgeries None recorded. Imaging None recorded. Medication Orders budesonid e DR-ER 9 mg tablet,de layed and extended release 2021 [id number], [address] [place], [address], 01/02/2022 11:23:34 Pentasa 500 mg capsule,c ontrolled release 2021 022 [id number], [address] [place], [address], 01/02/2022 11:23:34 Linzess 72 mcg capsule 2020 021 [facility], [address], [place], [place], [id number], 03/21/2021 09:11:29 omeprazol e 40 mg capsule,d elayed release 2020 021 [id number], [address] [place] [address], [address], 03/22/2021 04:25:11 Patient TargetsNo targets recorded. Patient Instructions Encounter Date Encounter Id Patient Instructions Last Modified By Organization Details Last Modified Time 07/09/2021 [id number] nausea and vomiting: care instructions Not available 07/10/2021 09:32:27 01/01/2022 [id number] constipation: care instructions Not available 01/02/2022 11:23:31 crohn's disease: care instructions Not available 01/02/2022 11:23:31 Reason for Referral None Reported. Results Created Date Observation Date Name Description Value Unit Range Abnormal Flag Note LastModifiedBy Organization Detail LastModifiedTime 05/21/2005/22/2021 UREA NITRO GEN (BUN) urea nitrogen (BUN) 14 mg/dL 7-25 normal Not Available [facility] [place] [facility] [address], [address], 05/22/2021 02:54:36 05/21/20 21 05/22/2021 UREA NITRO GEN (BUN) copy(ies) sent to: VIJAY PITTS R [address] [place] [phone] Not Available [facility] [place] [facility] [address], [place], [address], 05/22/2021 02:54:36 05/21/20 21 05/22/2021 CREAT ININE creatinine 0.79 mg/dL 0.50-0 .99 normal For patie nts >49 years of age, the refer ence limit for Creat inine is appro ximat mariel 13% highe r for peopl e ident ified as Afric an-Am zully n. Not Available [facility] [address], [place], [address], 05/22/2021 02:54:36 05/21/20 21 05/22/2021 CREAT ININE eGFR non-afr. costa rican 80 mL/mi n/1.7 3m2 > or = 60 normal Not Available [facility] [place] [facility] [address], [place], [address], 05/22/2021 02:54:36 05/21/20 21 05/22/2021 CREAT ININE eGFR 93 mL/mi n/1.7 3m2 > or = 60 normal Not Available [facility] [place] [facility] [address], [place], [address], 05/22/2021 02:54:36 05/21/20 21 05/22/2021 CREAT ININE copy(ies) sent to: VIJAY Nascimento [address] [place] [phone] Not Available [facility] [place] [facility] [address], [place], [address], 05/22/2021 02:54:36 09/19/19 22 09/20/2021 DAVID C [...] out david c disea se. Not Available [facility] [place] [facility] [address], [place], [address], 09/20/2021 14:58:56 09/19/19 22 09/20/2021 DAVID C DISEA SE COMP PANEL W/GLI PIPPA AB (IGG) tissue transglutami nase Ab, IgA <1.0 U/mL normal Value Inter preta tion ----- ----- ----- ---- <15.0 Antib fernando not detec summer > or = 15.0 Antib fernando detec summer Not Available [facility] [place] [facility] [address], [address], 09/20/2021 14:58:56 09/19/19 22 09/20/2021 DAVID C DISEA SE COMP PANEL W/GLI PIPPA AB (IGG) immunoglobul in A 162 mg/dL 70-320 normal Not Available [facility] [place] [facility] [address], [place], [address], 09/20/2021 14:58:56 09/19/19 22 09/20/2021 DAVID C DISEA SE COMP PANEL W/GLI PIPPA AB (IGG) copy(ies) sent to: VIJAY Nascimento [address] [place] [phone] Not Available [facility] [place] [facility] [address], [place], [address], 09/20/2021 14:58:56 09/19/19 22 09/21/2021 INFLA MMATO [...] 's disea se. Not Available [facility] [place] [facility] [address], [place], [address], 09/21/2021 00:06:28 09/19/19 22 09/21/2021 INFLA MMATO [...] in activ e disea se. Not Available [facility] [place] [facility] [address], [place], [address], 09/21/2021 00:06:28 09/19/19 22 09/21/2021 INFLA MMATO RY BOWEL DISEA SE DIFFE RENTI ATION PANEL proteinase-3 antibody <1.0 ai <1.0 Value Inter preta tion <1.0 AI: No Antib fernando Detec summer >or=1 .0 AI: Antib fernando Detec summer Autoa ntibo dies to prote inase -3 (CT-3 ) are accep summer as kalyani cteri stic for granu lomat osis with polya ngiit is (GPA, Wegen er's) , and are detec table in 95% of the histo logic ally prove n cases . The cytop armando bernal rn, (c-AN CA), is based large ly on autoa ntibo dy to CT-3 which serve s as the prima ry antig en. These autoa ntibo dies are prese nt in activ e disea se. Not Available [facility] [place] [facility] [address], [place], [address], 09/21/2021 00:06:28 09/19/19 22 09/21/2021 INFLA MMATO [...] cerev isiae . Not Available [facility] [place] [facility] [address], [place], [address], 09/21/2021 00:06:28 09/19/19 22 09/21/2021 INFLA MMATO [...] to S cerev isiae . Not Available [facility] [address], [address], 09/21/2021 00:06:28 09/19/19 22 09/21/2021 INFLA MMATO RY BOWEL DISEA SE DIFFE RENTI ATION PANEL copy(ies) sent to: [address] [phone] Not Available [facility] [address], [address], 09/21/2021 00:06:28 09/19/19 22 09/19/2021 C-SONI CTIVE PROTE IN C-reactive protein 2.1 mg/L <8.0 normal Not Available [facility] [address], [address], 09/19/2021 14:57:06 09/19/19 22 09/19/2021 C-SONI CTIVE PROTE IN copy(ies) sent to: [address] [phone] Not Available [facility] [place] [facility] [address], [place], [address], 09/19/2021 14:57:06 10/03/19 22 10/10/2021 CALPR OTECT IN, STOOL calprotectin , stool 100 mcg/g Refer ence Range : <50 Hilary l 50-12 0 Borde rline >120 Maurice summer Calpr otect in in Crohn 's [...] for borde rline value s. Not Available [facility] [place] [facility] [address], [place], [address], 10/10/2021 00:43:47 10/03/19 22 10/10/2021 CALPR OTECT IN, STOOL copy(ies) sent to: [facility] Nascimento [facility] [address] [facility] [address] [place] [phone] Not Available [facility] [place] [facility] [address], [place], [address], 10/10/2021 00:43:47 10/03/19 22 10/06/2021 LACTO CARTER [...] ge inser t. Not Available [facility] [place] [facility] [address], [address], 10/06/2021 21:02:59 10/03/19 22 10/06/2021 LACTO CARTER N, QN, STOOL copy(ies) sent to: [facility] R [facility] [address] [facility] [address] [place] [phone] Not Available [facility] [place] [facility] [address], [address], 10/06/2021 21:02:59 10/03/19 22 10/05/2021 LACTO CARTER N, QL, STOOL lactoferrin, ql, stool SEE NOTE LACTO CARTER N, QL, STOOL Micro Numbe r: [id number] Test Statu s: Final Speci men Sourc [...] 1 month . Not Available [facility] [place] [facility] [address], [place], [address], 10/05/2021 18:06:22 10/03/19 22 10/05/2021 LACTO CARTER N, QL, STOOL copy(ies) sent to: [facility] Nascimento [facility] [address] [facility] [address] [place] [phone] Not Available [facility] [place] [facility] [address], [place], [address], 10/05/2021 18:06:22 05/31/20 21 05/24/2021 MRI, abdom en, w/wo contr ast No observ ation record ed. [email or web address] [facility] [address] [facility], [place], [address], 05/31/2021 15:23:45 05/31/20 21 05/24/2021 abdom en w/&w/ [place] [id number] ____ __ ____ Pedro walker MD: Rosa [...] 3 cm proxim al to the ileoce hremila valve. This portio n of bowel remain [...] subcen timete r short axis bilate ral crusher and binder operator al iliac lymph nodes. VESSEL S: No [...] Copies To: [facility] care [facility] ; [email or web address] [facility] [address], [place], [address], 07/25/2021 19:06:40 05/31/20 21 05/24/2021 pelvi s w/&w/ [place] [id number] ____ __ ____ Pedro walker MD: Rosa [...] subcen timete r short axis bilate ral crusher and binder operator al iliac lymph nodes. VESSEL S: No [...] Copies to: Interp reting Physic abeba: Ranjit Norirs MD Approv ed Electr onical ly by/ Date: Ranjit Norris MD [address]: Electr onical ly approv ed by: Ignacia hammonds Date: 2020 7:48 AM Copies To: Health care Change ; [email or web address] [facility] [address] [facility], [place], [address], 07/25/2021 19:06:40 05/31/20 21 05/24/2021 MRI, pelvi s, w/wo contr ast No observ ation record ed. [email or web address] [address] [facility], [place], [address], 05/31/2021 15:24:21 Result Notes None recorded. Problems No Known Problems Procedures Surgical History None recorded. Imaging Results Imaging Date Name Status LastModified by Organiz ation Details LastModified Time 05/24/2021 MRI, abdomen, w/wo contrast completed [email or web address] [address] [facility], [place], [address], 05/31/2021 15:23:45 05/24/2021 abdomen w/&w/o contrast 50918 completed [email or web address] [facility] [address] [facility], [place], [address], 07/25/2021 19:06:40 05/24/2021 pelvis w/&w/o contrast 23922 completed [email or web address] [facility] [address] [facility], [place], [address], 07/25/2021 19:06:40 05/24/2021 MRI, pelvis, w/wo contrast completed [email or web address] [facility] [address] [facility], [place], [address], 05/31/2021 15:24:21 Procedure Notes None recorded. Medical [...] SNOMED-CT Code Diagnosis ICD10 Code Diagnosis Note [id number] Zoie rogers [facility] - Office [address] [place] [phone] 03/21/2021 09:05:07 03/21/2021 09:11:19 Heartburn 39243380 R12 Dysphagia 87965311 R13.1 0 Constipation 76605924 K5 9.00 [id number] Sammie Estrada [facility] - Office [address] [place] [address] 07/10/2021 09:28:05 07/10/2021 09:32:40 Gastroesophageal reflux disease without esophagitis 006750846 K21.9 Epigastric pain 11895748 R10.13 Nausea and vomiting 1693 1999 R11.2 Small edinson l obstruction 421973156 K56.609 [id number] Sammie Estrada [facility] [address], [address] [place] [address] 01/02/2022 11:19:17 01/02/2022 11:23:59 Gastroesophageal reflux disease without esophagitis 125024735 K21.9 Constipation 39870998 K5 9.00 Crohn's disease 90736603 K50.90 Epigastric pain 19437554 R10.13 Abdominal bloating 34896 9008 R14.0 Health Concerns Section Related Observation LastModified by Organization Detai ls LastModified Time None Recorded Concern Status LastModified by Organization Details LastModified Time None Recorded Advance Directives Directive None Recorded Payers Encounter Date Sequence Insurance Name Policy Number Policy Segovia Covered Member ID Segovia Member ID Guarantor Name 03/19/2021 1 [employer] [id number] Lakshmi Dennison [id number] Lakshmi Dennison 07/09/2021 1 [employer] [id number] Lakshmi Dennison [id number] Lakshmi Dennison 01/01/2022 1 [employer] [id number] Lakshmi Dennison [id number] Lakshmi Dennison OBGyn Episode No OBEpisode recorded.
--- OUTSIDE RECORDS SUMMARY | 2024-09-07 08:02 | XMS_ITS | Referral Summary ---
Author Organization [facility] Address [address] [place] [address] Care Team Providers Care Curtains And Draperies Salesperson Name Role Phone Royer Ospina Primary Care Provider [phone] Allergies Active Allergy Reactions Criticality Noted Date [...] Not on file Insurance [employer] Care Teams Curtains And Draperies Salesperson Relationship Specialty Start Date End Date Royer Ospina [address] [place] [address] PCP - General Internal Medicine 04/28/20
--- NOTE | 2024-09-07 08:12 | ED.GENADULT ---
HPI - General Adult General Chief complaint: General Medical Stated complaint: fall Time Seen by Provider: 09/07/24 08:04 Source: patient Mode of arrival: ambulatory Limitations: no limitations History of Present Illness ED Provider: Erik Vasquez PA-C HPI narrative: 64 yo female with history of fibromyalgia, chronic pain on chronic tramadol who presents to the ER for evaluation of neck pain, bilateral arm pain for the last 2 weeks. She reports the pain in her left arm started back in June. It comes and goes and she states her arm seizes up and has associated tingling. She reports tripping over a curb 2 weeks ago and falling on her left side. She had pain on the left shoulder, left hip, bilateral thigh pain and knee pain. The pain comes and goes and it worse at night. He has been taking tramadol with little improvement. Since the fall the pain and spasming in her left arm is worse. PCP told her to come to the ER for neck x-rays. MD complaint: acute on chronic neck pain, left sided body pain Onset (ago): week(s) Location: neck, left and upper extremity Radiation: distal Severity: severe Quality: sharp and other (tingling) Pain Consistency: intermittent Relieving factors: none Exacerbating factors: none Associated symptoms: denies other symptoms Treatments prior to arrival: none Related Data Previous Rx's ?Medication ?Instructions ?Recorded ibuprofen 800 mg tablet 800 mg PO Q8H PRN pain #20 tabs 09/07/24 methocarbamol 500 mg tablet 500 mg PO Q6H PRN muscle pain #20 09/07/24 tabs Allergies Allergy/AdvReac Type Severity Reaction Status Date / Time prochlorperazine AdvReac Unknown SKIN Verified 09/07/24 07:17 [From COMPAZINE] ANDRESSA Review of Systems Review of Systems: Yes all other systems are reviewed and are negative FOR[facility]LY [facility] Social History Social History Advance Directives: No Advance Directives Information Provided: Yes Physical Exam ED Vital Signs: Vital Signs - 24 hr 09/07/24 07:13 Temperature 98.0 F Pulse Rate 63 Respiratory Rate 18 Blood Pressure 124/63 Pulse Oximetry 96 Oxygen Delivery Method Room Air BMI result Body Mass Index 21.3 Appearance: Alert. Oriented X3. No acute distress. Head: normocephalic, atraumatic. Eyes: Pupils equal, round and reactive to light. ENT: Pharynx normal. No tonsillar swelling or exudate. Neck: Normal inspection. Neck supple. No midline tenderness. Pain with flexion and rotation to the right. soft tissue tenderness to the left side. CVS: Normal heart rate and rhythm. Pulses normal. Respiratory: No respiratory distress. Breath sounds normal. Skin: Skin warm and dry. Normal skin color. Normal skin turgor. No rashes. Extremities: No lower extremity edema. No joint swelling. Pelvis is stable. nontender left hip with full ROM, bilateral thighs are nontender with soft compressible compartments. no knee swelling, FROM. Neuro/psych: Oriented X 3. No motor deficit. No sensory deficit. strength is equal and symmetrical throughout. CN II-XII intact. Normal speech and cognition. steady gait Medical Decision Making Medical Decision Making MDM Narrative: 64 yo female with history of fibromyalgia and chronic pain presenting with acute on chronic neck pain with intermittent left arm spasms. exam is nonfocal. pain with neck flexion. no meningeal signs. no headache or fevers. ambulatory and appears well. pain started months ago and is worse after fall. no head strike and no LOC. CT scan of the cervical spine ordered - showing mild degenerative spondylosis, mild straightening of the cerivcal lordosis. no central stenosis results d/w patient. patient will likely need nonemergent MRI from her PCP will start muscle relaxer and nsaid. will refer to pain management stable for d/c home. Differential Diagnosis Differential Diagnoses: The differential diagnosis associated with the presentation includes cervical radiculopathy, muscle spasm, OA, inflammatory arthritis, contusion, fibromyalgia Independent Interpretation I performed an independent interpretation of an: CT Scan Interpretation: no central canal stenosis or fracture appreciated Radiology Impression Discussion of test interpretation with radiology: I have reviewed the radiologist's reading. External Record Review External record reviewed: Outpatient record, Prior outpatient labs and Prior outpatient radiology Prescription Management I considered prescription management with: Pain Medication Chronic Conditions Patient?s care impacted by: Other (fibromyalgia) Critical Care Time Critical Care Time Critical Care Time: No Discharge Plan Discharge Clinical Impression: Neck pain Patient Disposition: Home, Self-Care Instructions: Neck Pain (ED) Additional Instructions: Use ice several times per day for 20 minutes at a time for the next 48 hours and then change to heat. Take medications as prescribed to help with pain and discomfort. Follow up with your Primary Care Doctor this week. Recommend following up with the Pain Management clinic - number below, call for an appointment If you develop new or worsening symptoms call 911 or come back to the ER for further evaluation. CLINICAL INFORMATION: Neck pain with left arm pain. COMPARISON: None available. TECHNIQUE: Spiral CT imaging of the cervical spine performed in axial plane without contrast. Multiplanar reformatted images were constructed from the axial data set FINDINGS: CORONAL ALIGNMENT: -Normal. SAGITTAL ALIGNMENT: -Minimal reversal of the normal lordosis centered at C5-6. -There is a 2 mm degenerative appearing anterolisthesis of C4 on C5 and C5 on C6. C1-C2 AND CRANIOCERVICAL JUNCTION: -Intact and aligned. Mild to moderate degenerative changes in the atlantoaxial joint. VERTEBRAL BODIES AND FACETS: -No fracture, traumatic subluxation, compression deformity, or suspicious bone lesion. Normal facet alignment. Mild to moderate degenerative facet changes present, most significant on the right at C3-4, and on the left at C4-5 and C5-6. DISCS: -Mild disc degeneration present C4-5, C5-6, and C6-7. -Discs otherwise preserved. CENTRAL CANAL: -No evidence of high-grade central canal narrowing or large disc herniation allowing for modality limitations. -No high-grade left neural foraminal stenosis noted. PREVERTEBRAL AND PARAVERTEBRAL SOFT TISSUES: -Normal. -Mild left greater than right carotid bulb calcification. -Normal-appearing thyroid. LUNG APICES: -Minimal biapical scarring. Otherwise clear. CT/CT cervical spine wo IV con IMPRESSION: 1. No CT evidence of acute cervical spine fracture or injury. 2. Mild degenerative spondylosis as discussed. No high-grade central canal stenosis, or high-grade left neural foraminal stenosis identified. 3. Should symptoms persist, MRI recommended. Prescriptions: New methocarbamol 500 mg tablet 500 mg PO Q6H PRN (Reason: muscle pain) Qty: 20 0RF ibuprofen 800 mg tablet 800 mg PO Q8H PRN (Reason: pain) Qty: 20 0RF Referrals: [facility] [place] Pain Management [Provider Group] Royer Ospina MD [Primary Care Provider] - Print Language: Mosotho
[2024-09-07 09:42] VITALS: BP 122/64; PULSE 53; RESP 14; TEMP 36.7; O2SAT 97
[2024-09-07 09:57] VITALS: BP 122/64; PULSE 53; RESP 14; TEMP 36.7; O2SAT 97
== END 2024-09-07 09:57 | disposition home or self-care (01) ==
PROVIDERS: Emergency Provider Emergency Medicine; PCP Internal Medicine
DX: M54.2 Cervicalgia (principal)
CPT/HCPCS: 72125; 99283; 99284

== ENCOUNTER → 2024-09-07 08:23 | Outpatient (BNV) | payer OTHER, MEDICARE, SELFPAY | PROVIDERS: Emergency Provider Emergency Medicine; PCP Internal Medicine; Visit Provider Radiology Diagnostic Radiology | DX: M54.2 Cervicalgia (principal) | CPT/HCPCS: 72125 ==